=== PATIENT | male | born 1985 | race American Indian/Alaskan Native ===

== ENCOUNTER 2025-04-28 20:23 | Emergency (ER) ==
[~2025-04-28] VITALS: Ht 172.7 cm; Wt 73.0 kg
[2025-04-28 20:29] VITALS: O2SAT 98
[2025-04-28] MEDS: KETOROLAC 15MG/ML VIAL IM ONE (21:48)
[2025-04-28] MEDS ORDERED: LIDO-53 TP (22:47)
[2025-04-28] MEDS ORDERED: NAPR-1176 MT (22:47)
[2025-04-28 23:21] VITALS: BP 138/90; PULSE 76; RESP 17; TEMP 37; O2SAT 100
== END 2025-04-28 23:23 | disposition home or self-care (01) ==
LOC: ER 20:23 → EDBD 20:23 → ER 23:23
DX: R07.89 Other chest pain (principal); Z79.1 Long term (current) use of non-steroidal anti-inflammatories (NSAID)
CPT/HCPCS: 99283; 71045; 96372; J1885